=== PATIENT | female | born 1985 | race Caucasian/White ===

== ENCOUNTER 2021-08-17 12:47 | Emergency (ER) | payer BC ==
[~2021-08-17] VITALS: Ht 167.6 cm; Wt 77.1 kg
[~2021-08-17 12:47] MED LIST: IBUPROFEN600 MG PO
== END 2021-08-17 17:00 | disposition home or self-care (01) ==
LOC: ER1 12:47
DX: U07.1 COVID-19 (principal); Z23 Encounter for immunization
CPT/HCPCS: 99283; M0245